=== PATIENT | male | born 1940 | race Caucasian/White ===

== ENCOUNTER 2020-08-22 11:37 | Day surgery (SDC) | payer MEDICARE, BC, SELFPAY ==
[2020-08-16 20:17] VITALS: BMI 24.3
--- NOTE | 2020-08-19 16:13 | HP_ITS ---
DATE OF SERVICE: 08/22/2020 DATE OF PROPOSED SURGERY: August 22, 2020. PREOPERATIVE DIAGNOSES: 1. Hammertoe, right second toe. 2. Hammertoe, right third. 3. 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 4. Skin disease, right foot. PLANNED PROCEDURES: 1. Hammertoe repair, right second. 2. Hammertoe repair, right third. 3. Extensor tenotomy and capsulotomy of the right second metatarsophalangeal joint. 4. Excision of skin, right foot. PLANNED ANESTHESIA: Local anesthesia. CHIEF COMPLAINT AND HISTORY OF PRESENT ILLNESS: Jaime Nix is an 80-year-old male, who relates a history of painful hammertoes, skin condition and contracture involving the right 2nd and 3rd toes. This condition has been present over the past several years. His pain is aggravated by shoe gear and walking activity. Conservative treatment consisting of altered shoe gear as well as debridement of painful skin lesion and accommodative padding, has proven ineffective and the patient is now requesting surgical treatment. PAST MEDICAL HISTORY: Remarkable for hypertension, high cholesterol. CURRENT MEDICATIONS: Aspirin 81 mg, atorvastatin 80 mg, metoprolol/hydrochlorothiazide, tamsulosin. ALLERGIES: THE PATIENT HAS NO KNOWN ALLERGIES OR DRUG SENSITIVITIES. FAMILY HISTORY: Significant for diabetes, heart disease, cancer. SOCIAL HISTORY: The patient denies smoking, denies use of alcohol, denies any caffeinated products and also denies use of any recreational drugs. PODIATRIC PHYSICAL EXAMINATION: VASCULAR EXAM: The patient displays +2/4 pulses with DP and PT arteries with normal cap refill time noted bilateral feet. DERMATOLOGIC EXAM: Reveals inflamed skin dorsal aspect of the right second toe PIP joint. NEUROLOGIC EXAM: Reveals intact sensation. The patient does have pain on palpation right 2nd and 3rd toes, PIP joints and right 5th metatarsal base. ORTHOPEDIC EXAM: Reveals hammertoe contracture, 2nd through 5th toes bilateral feet. The patient was seen most recently in my office on August 06, 2020. Preoperative informed consent has been obtained from the patient for his planned right foot surgery. CASSI Jacome/LUCIANO / [id number]
--- NOTE | 2020-08-20 15:33 | MHC.SHP ---
Pre-Procedural Eval Section A The patient is an INPATIENT: No Changes since office visit: No Cold of Flu in the past 2 weeks, No New Medical Problems, No Changes in Medication and No Patient answered all questions The History & Physical has been completed within 30 days and I have reviewed it.: Yes Section B Chief Complaint: Hammer Toe 2nd,3rd, Allergies: Allergies Allergy/AdvReac Type Severity Reaction Status Date / Time No Known Allergies Allergy Verified 08/16/20 20:20 Plan Patient has been examined and remains a candidate for the planned procedure
--- NOTE | 2020-08-20 15:34 | PM.OP ---
Brief Operative Note Date of procedure: 08/22/20 Surgeon: Dmitriy Deleon Estimated blood loss (mL): 15.0
--- NOTE | 2020-08-22 10:34 | MHC.SHP ---
Pre-Procedural Eval Section A The patient is an INPATIENT: No Changes since office visit: No Cold of Flu in the past 2 weeks, No New Medical Problems, No Changes in Medication and No Patient answered all questions The History & Physical has been completed within 30 days and I have reviewed it.: Yes Section B Chief Complaint: Hammer Toe 2nd,3rd, Allergies: Allergies Allergy/AdvReac Type Severity Reaction Status Date / Time No Known Allergies Allergy Verified 08/16/20 20:20 Plan Diagnosis/Plan: Unchanged Patient has been examined and remains a candidate for the planned procedure
[2020-08-22 11:57] VITALS: BP 124/70; PULSE 61; RESP 16; TEMP 36.3; O2SAT 100
[2020-08-22 14:01] VITALS: BP 113/62; PULSE 54; RESP 16; TEMP 36.3; O2SAT 99
--- NOTE | 2020-08-22 14:06 | PM.OP ---
Brief Operative Note Date of procedure: 08/22/20 Pre-op diagnosis: skin disease right foot, hammertoes right 2nd and 3rd and contracture right 2nd mtpj Post-op diagnosis: same Procedure: excision of skin right foot 3.2cm, hammertoe repair right 2nd and 3rd toes and extensor tenotomy and capsulotomy right 2nd mtpj Implants: .054 inch k-wire Surgeon: Dmitriy Deleon Anesthesia: local Estimated blood loss (mL): 15.0 Condition: stable
[2020-08-22 14:16] VITALS: BP 109/54; PULSE 55; RESP 16; TEMP 36.3; O2SAT 98
--- NOTE | 2020-08-22 21:44 | OP_ITS ---
SURGEON: Dmitriy Deleon DPM PREOPERATIVE DIAGNOSIS: POSTOPERATIVE DIAGNOSIS: PROCEDURE PERFORMED: ESTIMATED BLOOD LOSS: COMPLICATIONS: ANESTHESIA: Consisted of local administration of a total of 10 cc of an equal mix of 2% lidocaine with epinephrine [id number], 2% lidocaine plain. ASSISTANTS: SPECIMENS: PREOPERATIVE DIAGNOSES: 1. Skin disease, right foot. 2. Hammertoe, right 2nd. 3. Hammertoe, right 3rd. 4. 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 POSTOPERATIVE DIAGNOSES: 1. Skin disease, right foot. 2. Hammertoe, right 2nd. 3. Hammertoe, right 3rd. 4. 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 PROCEDURES PERFORMED: 1. Excision of skin lesion measuring 3.2 cm in length x 8 mm in width. 2. Hammertoe repair, right 2nd toe with 0.054 inch K-wire fixation. 3. Hammertoe repair, right 3rd toe. 4. Extensor tenotomy and capsulotomy of the right 2nd metatarsophalangeal joint. INTRODUCTION: The patient was brought to the operating room, placed on the operating table in the supine position. After having been suitably anesthetized with local infiltrative anesthesia, the right lower extremity was then prepped and draped in usual sterile manner. EXCISION OF SKIN LESION, RIGHT FOOT: Attention was directed to the dorsum of the right 2nd toe where there was found to be a nucleated keratoma on the dorsum of the right 2nd toe PIP joint. Two converging semi-elliptical incisions 3.2 cm in length were effected in a vertical linear fashion along the toe to excise the skin lesion entirely. The incisions were deepened in same plane and the ellipse of skin was excised from the wound in toto. Skin margins were now underscored and retracted. HAMMERTOE REPAIR, RIGHT 2ND AND 3RD TOES: Attention was now directed to the dorsum of the right 2nd and 3rd toe, where incisions were placed through the extensor tendon complex at the level of the PIP joint. The extensor tendon was underscored and retracted both proximally and distally. The hypertrophic head of the proximal phalanx was excised from the wound in toto utilizing sagittal saw. The base of the middle phalanx of the right 2nd toe was excised also utilizing the sagittal saw. The wound was irrigated with copious amounts of sterile saline. EXTENSOR TENOTOMY AND CAPSULOTOMY OF THE RIGHT 2ND METATARSOPHALANGEAL JOINT: Attention was directed to the dorsum of the right 2nd metatarsophalangeal joint, where there was found to be significant contracture of both the extensor longus brevis tendons and joint capsule. Incision approximately 2 cm in length was effected and centered over the dorsum of the right 2nd metatarsophalangeal joint. The incision was deepened in same plane. Hemostasis was acquired. The long and brevis tendons for the 2nd toe were isolated and transected via sharp dissection and then a dorsal medial and lateral capsulotomies were performed via sharp dissection. The wound was irrigated. The skin was closed with 4-0 nylon. A 0.054 inch K-wire was then driven through the midline of the phalanges of the right second toe. The excess K-wire was bent, cut, and capped. The extensor tendon was coapted to maintain on the right 2nd and 3rd toes utilizing 3-0 Vicryl. Skin margins were closed with 4-0 nylon. CONCLUSION: At conclusion of these procedures, the operative sites were dressed with Xeroform, 2-inch Conform, injected with a total of 5 cc Marcaine 0.5% plain and 1 cc of dexamethasone phosphate. Betadine-soaked gauze, Kerlix fluffs, and Conform were applied to the rest of the right lower extremity. The patient tolerated the surgery and anesthesia well and left the operating room via cart to the recovery room with vital signs stable. FINAL DISPOSITION: The patient was discharged home with instructions for self-care that include the followin. To keep the dressings dry, clean, intact. 2. To keep the right leg elevated with ice above the ankle or in the popliteal fossa. 3. To take all medications as prescribed. 4. To limit activity to minimum. 5. To always use surgical shoe and cane if needed. 6. Lastly, the patient has prescriptions for Motrin 800 mg 1 p.o. t.i.d. p.c., gabapentin 400 mg and Tylenol to be taken as needed. AUTOMATIC DIE CUTTING MACHINE OPERATOR: Jennifer Ryan DPM. CASSI Jacome/LUCIANO / [id number]
== END 2020-08-22 15:20 | disposition home or self-care (01) ==
PROVIDERS: PCP Pediatrics; Visit Provider Podiatrist
PROC: (CPT 28285; principal; 2020-08-22 12:50)
DX: M20.41 Other hammer toe(s) (acquired), right foot (principal); M24.574 Contracture, right foot; L85.1 Acquired keratosis [keratoderma] palmaris et plantaris
CPT/HCPCS: 28285 ×2; 28234; 11423; 88304; 88311; J1100